=== PATIENT | female | born 1960 | race Caucasian/White ===

== ENCOUNTER → 2017-07-14 | Outpatient (CLI) | payer BC ==
[2017-07-14 15:53] VITALS: BP 123/83; PULSE 81; RESP 18
--- NOTE | 2017-07-14 16:17 | CONS ---
Date/Time of Note Date/Time of Note DATE: 07/14/17 TIME: 16:16 Assessment/Plan Assessment/Plan Additional Assessment/Plan [facility] INITIAL OUTPATIENT CONSULTATION NOTE DATE OF CONSULTATION: 07/14/2017 PLACE OF SERVICE: [facility] ASSESSMENT AND PLAN: A very-pleasant 56-year-old lady with comorbidity of previous obesity, status post laparoscopic gastric sleeve operation 2014 at [facility], presenting with signs and symptoms that could be due to symptomatic cholelithiasis, but could also be due to other etiologies. Since the patient's symptoms improved with intake of Creon, and since she has had previous bariatric surgery, I recommended that we perform a CT scan of abdomen and pelvis while we are scheduling the patient for an elective laparoscopic cholecystectomy. I also had recommended that the patient considers getting a gastroenterology consultation with possible endoscopic evaluation, but the patient insisted that we proceed with surgery first and that if she did not have resolution of her symptoms, that she would then go ahead and get the gastroenterology consultation. I explained to her that this would run the risk of her needing more than 1 set of anesthesia, but I do not believe that the risk was significant enough not to proceed with surgery first. We did however agree that a CT scan of the abdomen and pelvis will be done in order to give us a better understanding of her anatomy. I described the operation in detail and consented the patient (no family present during my discussions with the patient). Answered all questions. Patient appeared to understand and agreed with plans. With above assessment, I've recommended the followin. CT scan of abdomen and pelvis with IV and oral contrast 2. Schedule patient for laparoscopic, possible open cholecystectomy Thank you very much for having me involved in the care of this very pleasant patient and wonderful family. If you have any questions, please feel free to contact me at [phone]. Nature of presenting problem: Moderate severity Please note that, given the multiple number of diagnoses or management options, the moderate amount and/or complexity of data needed to be reviewed, and moderate risk of complications and/or morbidity or mortality, this qualifies as moderate complexity type of decision-making. Disclaimer: Inadvertent spelling and grammatical errors are likely due to EHR/ dictation software use and do not reflect on the quality of delivered patient care. Also, please note that the electronic time recorded on this node does not necessarily reflect the actual time of the visit. Updated clinical summary: A very-pleasant 56-year-old lady with comorbidity of previous obesity, status post laparoscopic gastric sleeve operation 2014 at [facility], presenting with signs and symptoms that could be due to symptomatic cholelithiasis, but could also be due to other etiologies. Comorbidities: 1. Obesity 2. Status post gastric sleeve operation 12/2014 3. Cholelithiasis as seen on ultrasound right upper quadrant 05/25/2017 ( multiple stones with shadowing in the gallbladder); normal-appearing common bile duct. 4. Suspected hepatic steatosis 5. Chronic constipation, taking MiraLAX CONSULTATION REQUESTED BY: Ankur Shrestha MD Dear Dr. Shrestha: Thank you very much for your kind referral of this very pleasant lady and uncertain her wonderful family. HISTORY OF PRESENT ILLNESS: The patient is a very pleasant 56-year-old lady with above-mentioned comorbidities whom we were kindly asked consult regarding management of her symptomatic cholelithiasis. She reports having bloating as well as abdominal pain that seems to be localized to right upper quadrant After virtually eating any type of food for the last year. This is a new problem for her. She has had a right upper quadrant ultrasound in May 2017 that demonstrates several stones within the gallbladder that is otherwise normal. Interestingly, she also has relief of some of her symptoms with intake of Creon. She has not seen a bariatrics watershed program manager since her operation. She has not had any endoscopy or other types of evaluations in the recent past. She reports constipation as a chronic problem but sometimes has diarrhea with taking MiraLAX. No blood in the stool or urine. No other major complaints. ALLERGIES: NO KNOWN DRUG ALLERGIES MEDICATIONS Documented in the electronic records and reviewed by me. Please see the electronic records for details. SOCIAL HISTORY: The patient lives with family that includes her and one child. She works as a field engineer and drives a truck.-Tob;-ETOH ;-IVDU FAMILY HISTORY: History of heart disease. There are no other significant medical, surgical or oncologic issues in the family as reported by the patient or reflected in the chart. REVIEW OF SYSTEMS: Other than mentioned above, there were no other pertinent positives or pertinent negatives in an otherwise complete 14 point review of systems. PHYSICAL EXAMINATION GENERAL: The patient appears to be a very pleasant lady of non- descent sitting in a chair, appearing stated age,] and otherwise in no acute distress. BMI: (patient did not allow us to weigh her; she appeared to have BMI perhaps between 35 and 40) VITAL SIGNS: AVSS (please also see auto important data if available as well as the electronic records) HEENT: Normocephalic and atraumatic. Extraocular muscles and hearing are grossly intact bilaterally and symmetrically. Sclerae are nonicteric. Oral cavity is clear; oral mucosa appear to be pink and moist. Dentition: fair. NECK: Supple. There is no lymphadenopathy or JVD. There is no submental, submandibular or supraclavicular lymphadenopathy. CHEST: Rises symmetrically with each breath; patient is breathing comfortably. There are no audible wheezes, rales or rhonchi on the gross exam. HEART: Pulse is regular and palpable on the right wrist. Capillary refill is normal. Carotid pulses are palpable bilaterally and symmetrically in the neck. EXTREMITIES: Lower extremities contain no pitting edema around the ankles bilaterally and symmetrically. ABDOMEN: Abdomen is soft, nontender and nondistended. No evidence of ascites, organomegaly, caput medusae, engorged subcutaneous veins, or other abnormalities. There are no peritoneal signs or guarding. SKIN: Appears to be pink and feels warm to touch. NEUROLOGIC: Awake, alert, and follows commands appropriately. LABORATORY DATA: See below IMAGING: See electronic chart. Please note that I've personally reviewed all pertinent available images and I agree in general with their overall reported findings. Consultation Date/Type/Reason Admit Date/Time Exam/Review of Systems Vital Signs Vitals Vital Signs Date Time Temp Pulse Resp B/P Pulse Ox O2 Delivery O2 Flow Rate FiO2 07/14/17 15:53 97.8 81 18 123/83 96 Room Air KATHERINE VALLES M.D. Jul 14, 2017 16:17
== END | disposition home or self-care (01) ==
LOC: HPC 15:22
PROVIDERS: ATTEND Transplant Surgery
DX: K80.20 Calculus of gallbladder without cholecystitis without obstruction (principal); E66.9 Obesity, unspecified; K59.09 Other constipation